=== PATIENT | male | born 1945 | race Caucasian/White ===

== ENCOUNTER 2020-06-19 16:03 | Emergency (ER) | payer MEDICARE, BC ==
--- NOTE | 2020-06-19 17:55 | EDM.PDOC ---
ED HPI GENERAL MEDICAL PROBLEM - General Chief Complaint: Neuro Symptoms/Deficits Stated Complaint: fall, left arm/hand swelling, neuro changes Time Seen by Provider: 06/19/20 16:15 Source of Information: Reports: Patient, [facility] Records History Limitations: Reports: Altered Mental Status, Other (Hx/o dementia) - History of Present Illness INITIAL COMMENTS - FREE TEXT/NARRATIVE: Pt fell last PM Now with bruising to left face and left arm NH states he seems a bit weaker than usual Onset: Gradual Duration: Day(s): Location: Reports: Face, Upper Extremity, Left Context: Reports: Trauma - Related Data Allergies Allergy/AdvReac Type Severity Reaction Status Date / Time No Known Allergies Allergy Verified 04/12/14 06:46 Home Meds: Home Meds Aspirin [Low Dose Aspirin EC] 81 mg PO DAILY 04/12/14 [History] Carbidopa/Levodopa [Carbidopa-Levodopa 25-100] 2 tab PO 0730,1000,1300 04/12/14 [History] Acetaminophen 2 tab PO Q4HR PRN 06/19/20 [History] Baclofen 1 tab PO DAILY 06/19/20 [History] Bisacodyl [Laxative Suppository] 1 supp RECTAL DAILY PRN 06/19/20 [History] Carbidopa/Levodopa [Carbidopa-Levodopa 25-100 Tab] 2 tab PO 1600,1900 06/19/20 [History] Carbidopa/Levodopa [Sinemet 25-100 mg Tablet] 1.5 tab PO 03,2230 06/19/20 [History] Celecoxib 1 tab PO BID 06/19/20 [History] Cholecalciferol (Vitamin D3) [Vitamin D3] 4 cap PO DAILY 06/19/20 [History] Cyanocobalamin (Vitamin B-12) [B-12] 1 tab PO DAILY 06/19/20 [History] DULoxetine HCl [Cymbalta] 1 cap PO QAM 06/19/20 [History] Donepezil HCl 1 tab PO DAILY 06/19/20 [History] Lactulose 15 ml PO QAM 06/19/20 [History] Lactulose 30 ml PO QPM 06/19/20 [History] Lidocaine 2% [Xylocaine 2% Jelly] 1 applic TOP Q8HR PRN 06/19/20 [History] Loperamide HCl [Imodium A-D] 1 tab PO ASDIRECTED 06/19/20 [History] Melatonin 1 tab PO BEDTIME 06/19/20 [History] Mirtazapine 1 tab PO DAILY 06/19/20 [History] QUEtiapine Fumarate [Quetiapine Fumarate] 12.5 mg PO BEDTIME 06/19/20 [History] Rasagiline Mesylate 1 tab PO QAM 06/19/20 [History] Sennosides/Docusate Sodium [Senna-Docusate Sodium Tablet] 1 tab PO BID 06/19/20 [History] bisacodyL [Dulcolax] 2 tab PO DAILY PRN 06/19/20 [History] polyethylene glycoL 3350 [MiraLAX] 1 pkg PO QAM 06/19/20 [History] Social & Family History - Tobacco Use Smoking Status *Q: Unknown Ever Smoked ED ROS GENERAL - Review of Systems Review Of Systems: See Below HEENT: Reports: Other (Left face brusing) Cardiovascular: Reports: No Symptoms GI/Abdominal: Reports: No Symptoms Musculoskeletal: Reports: Other (Left arm bruising) Neurological: Reports: Weakness, Other (Dementia) ED EXAM, NEURO - Physical Exam Exam: See Below Exam Limited By: Other (Dementia) General Appearance: No Apparent Distress Eye Exam: Bilateral Eye: EOMI, PERRL Nose: Normal Inspection Throat/Mouth: Normal Oropharynx Head Exam: Facial Swelling, Other (Left face with mild swelling and ecchymosis) Neck: Supple, Non-Tender Respiratory/Chest: Lungs Clear Cardiovascular: Regular Rate, Rhythm GI/Abdominal: Soft, Non-Tender Extremities: Other (Left elbow and hand with mild swelling and ecchymosis) Course - Vital Signs Last Recorded V/S: Last Vital Signs Temp 98.6 F 06/19/20 16:09 Pulse 107 H 06/19/20 16:09 Resp 18 06/19/20 16:09 BP 93/56 L 06/19/20 16:09 Pulse Ox 99 06/19/20 16:09 - Orders/Labs/Meds Orders: Active Orders 24 hr Category Date Time Status Forearm 2V Lt [CR] Stat Exams 06/19/20 16:14 Taken Hand 2V Lt [CR] Stat Exams 06/19/20 16:14 Taken Head wo Cont [CT] Stat Exams 06/19/20 16:24 Taken Maxillofacial w/o CM [Max Facial Sinus wo Cont] [CT] Exams 06/19/20 16:25 Taken Stat - Re-Assessments/Exams Free Text/Narrative Re-Assessment/Exam: 06/19/20 17:53 Pt stable in ER Xray: No fractures CT: Negative Departure - Departure Time of Disposition: 18:00 Disposition: DC/Tfer to SNF 03 Clinical Impression: Multiple contusions - Discharge Information *PRESCRIPTION DRUG MONITORING PROGRAM REVIEWED*: Not Applicable *COPY OF PRESCRIPTION DRUG MONITORING REPORT IN PATIENT SEAN: Not Applicable Referrals: Agata Abraham PA-C [Primary Care Provider] - Additional Instructions: Ice as needed Activity as tolerated Follow up with usual provider Usual medications and cares Sepsis Event Note (ED) - Evaluation Sepsis Screening Result: No Definite Risk - Focused Exam Vital Signs: Vital Signs Temp Pulse Resp BP Pulse Ox 06/19/20 16:09 98.6 F 107 H 18 93/56 L 99 - My Orders Last 24 Hours: My Active Orders 06/19/20 16:14 Forearm 2V Lt [CR] Stat Hand 2V Lt [CR] Stat 06/19/20 16:24 Head wo Cont [CT] Stat 06/19/20 16:25 Maxillofacial w/o CM [Max Facial Sinus wo Cont] [CT] Stat - Assessment/Plan Last 24 Hours: My Active Orders 06/19/20 16:14 Forearm 2V Lt [CR] Stat Hand 2V Lt [CR] Stat 06/19/20 16:24 Head wo Cont [CT] Stat 06/19/20 16:25 Maxillofacial w/o CM [Max Facial Sinus wo Cont] [CT] Stat
== END 2020-06-19 18:04 ==
LOC: LL.ED 16:03
DX: S50.02XA Contusion of left elbow, initial encounter (principal); S00.83XA Contusion of other part of head, initial encounter; Z79.82 Long term (current) use of aspirin; Z79.899 Other long term (current) drug therapy; W19.XXXA Unspecified fall, initial encounter
CPT/HCPCS: 70450; 70486; 73090-LT; 73120-LT; 99282; 99284-25